=== PATIENT | male | born 1985 | race Caucasian/White ===

== ENCOUNTER 2024-05-04 12:54 | Emergency (ER) | payer MEDICAID, SELFPAY ==
[2024-05-04 13:47] VITALS: BP 136/96; PULSE 79; RESP 18; TEMP 36.6; O2SAT 95; BMI 46.5
--- NOTE | 2024-05-04 13:57 | XR_ITS ---
Examination: Lumbar spine 3 views Technique: AP lateral coned lateral lower lumbar spine 3 views Exam date and time: May 04, 2024 1427 hrs. Indications: Lower back pain beginning one week ago. Findings: Transitional L5 vertebral body Mild to moderate diffuse lumbar disc narrowing most prominent at T12-L1 No lumbar fracture Impression: Mild to moderate diffuse lumbar disc narrowing
[2024-05-04] MEDS: CYCLObenzaPRINE 5 MG TABLET 10 MG PO (14:42)
[2024-05-04] MEDS: predniSONE 20 MG TABLET 60 MG PO (14:43)
[2024-05-04] MEDS: HYDROcodone/APAP 5/325 TABLET 1 TAB PO (14:44)
[2024-05-04] MEDS: LIDOCAINE 5% 1 PATCH TOP (14:44)
--- NOTE | 2024-05-04 16:46 | PD.EDBACK ---
ED Back Injury Pain RME/HPI General Chief Complaint: Back Pain/Injury Stated Complaint: BACK PAIN X5 DAYS Time Seen by Provider: 05/04/24 13:35 Source: patient Arrival date/time: 05/04/24 12:54 This is a 39-year-old male who presents to the emergency department with complaints of lumbar lower back pain that radiates into his right side. Patient does have a history of degenerative disc disease. States that he has had pain exacerbation for the last 5 days no improvement with [id number] occasion. Patient denies bowel or bladder dysfunction. Denies fever. Mode of arrival: ambulatory Limitations: no limitations Related Data Previous Rx's ?Medication ?Instructions ?Recorded ibuprofen 800 mg tablet 800 mg PO Q8H PRN pain #20 tabs 09/19/19 cyclobenzaprine 10 mg tablet 10 mg PO Q8H #20 tabs 05/04/24 hydrocodone 5 mg-acetaminophen 325 1 tab PO Q8H PRN pain #7 tabs 05/04/24 mg tablet lidocaine 5 % topical patch 1 patch topical QDAY #15 ea 05/04/24 methocarbamol 750 mg tablet 750 mg PO BID #14 tabs 05/05/24 Allergies Allergy/AdvReac Type Severity Reaction Status Date / Time theophylline Allergy Unknown Verified 05/05/24 16:26 Review of Systems Review of Systems Systems Reviewed: All systems reviewed, normal except as documented Narrative Review of Systems: Gen: No fever, no chills, no weight loss EYES: No discharge, no visual changes, no pain HEENT: No ear pain, no congestion, no sore throat PULM: No shortness of breath, no cough, no congestion CV: No chest pain, no dyspnea on exertion, no palpitations GI: No nausea, no vomiting, no diarrhea, no pain, no constipation : No frequency, no urgency,? no dysuria Musc/skel: No joint pain, ++ back pain Skin: No rash? ED Exam General Limitations: Present no limitations General appearance: Present alert and in no apparent distress Head Head exam: Present atraumatic Eye Eye exam: Present normal appearance, PERRL and EOMI ENT ENT exam: Present normal exam, normal oropharynx and mucous membranes moist Neck Neck exam: Present normal inspection, full ROM and trachea midline Chest Chest inspection: Present normal inspection and symmetric chest wall rise Respiratory Respiratory exam: Present normal lung sounds bilaterally Cardiovascular Cardiovascular exam: Present regular rate, normal rhythm and normal heart sounds Abdominal Exam Abdominal exam: Present soft and normal bowel sounds; Absent distention, tenderness or guarding Extremities Exam Extremities exam: Present normal inspection and full ROM Back Exam Back exam: Present normal inspection, full ROM, paraspinal tenderness, sciatic notch tenderness (R) and straight leg raise (R); Absent tenderness Neurological Exam Neurological exam: Present alert, oriented X3 and CN II-XII intact Psychiatric Psychiatric exam: Present normal affect and normal mood Skin Skin exam: Present warm, dry, intact and normal color Course Quality Measures none Orders Category Date Time Status XR lumbar spine 2-3V Stat Exams 05/04/24 13:57 Completed CYCLObenzaPRINE [Flexeril] Med 05/04/24 13:57 Discontinued 10 mg PO X1 ONE HYDROcodone*/APAP 5/325 [[place] 5/325] Med 05/04/24 13:57 Discontinued 1 tab PO X1 ONE Lidocaine 5% Patch Med 05/04/24 13:57 Discontinued 1 patch TOP X1 ONE predniSONE Med 05/04/24 13:57 Discontinued 60 mg PO X1 ONE Vital Signs Vital signs: Vital Signs Temperature 97.8 F 05/04/24 13:47 Pulse Rate 79 05/04/24 13:47 Respiratory Rate 18 05/04/24 13:47 Blood Pressure 136/96 H 05/04/24 13:47 Pulse Oximetry (%) 95 05/04/24 13:47 Oxygen Delivery Method Room Air 05/04/24 13:47 Back Pain / Injury MDM Narrative MDM Narrative:: No fever, weakness, abdominal pain, saddle anesthesia, bowel/bladder incontinence noted. No hx of IVDA. Gait and sensation intact. No signs of emergent pathology at this time. Low suspicion for emergent etiology such as epidural abscess or spinal cord compression/cauda equina. Exam is consistent with musculoskeletal back pain. based on history, it's chronic pain. Gave meds while in ED. Pain went from 10 to 5 after meds. Vitals improved as well. Likely chronic back pain Patient data External records reviewed:: [facility] previous records Clinical information provided by:: patient Social determinants that could affect healthcare access:: none Patient has the following chronic illnesses:: no How is presenting disease/condition affected by chronic disease/condition?: no chronic disease Evaluation data The following diagnostics were reviewed and interpreted by me:: radiology exam(s) Lab and/or radiology exams considered but not ordered:: no Interpretation Summary: Examination: Lumbar spine 3 views Technique: AP lateral coned lateral lower lumbar spine 3 views Exam date and time: May 04, 2024 1427 hrs. Indications: Lower back pain beginning one week ago. Findings: Transitional L5 vertebral body Mild to moderate diffuse lumbar disc narrowing most prominent at T12-L1 No lumbar fracture Impression: Mild to moderate diffuse lumbar disc narrowing Medications / Prescriptions Medications or Prescriptions considered but not ordered:: no Medication administrations:: Medication Administration History Discontinued Medications Hydrocodone Bitart/Acetaminophen (Hydrocodone/Apap 5/325 Tablet) 1 tab PO X1 ONE Stop: 05/04/24 13:58 Last Admin: 05/04/24 14:44 Dose: 1 tab Documented By: Cyclobenzaprine HCl (Cyclobenzaprine 5 Mg Tablet) 10 mg PO X1 ONE Stop: 05/04/24 13:58 Last Admin: 05/04/24 14:42 Dose: 10 mg Documented By: Lidocaine (Lidocaine 5% 1 Patch) 1 patch TOP X1 ONE Stop: 05/04/24 13:58 Last Admin: 05/04/24 14:44 Dose: 1 patch Documented By: Prednisone (Prednisone 20 Mg Tablet) 60 mg PO X1 ONE Stop: 05/04/24 13:58 Last Admin: 05/04/24 14:43 Dose: 60 mg Documented By: All medications administered and effective Consultations Consultation(s) initiated? (list below): No Diagnosis Differential diagnosis back pain/injury: lumbar radiculopathy, sciatica, strain of lumbar region and other Most likely diagnosis given after review of the tests above:: lumbar radiculopathy Admission Indicated Admission indicated?: not indicated Admission Request Was there a request for admission?: No Disposition Plan Disposition Plan: Discharge Discharge Attestation Discharge Attestation: The patient and all family members were given an opportunity to ask questions and understood the discharge instructions. Discharge instructions specifically effects, indications for sooner follow up or return to the emergency department, and the expected course of current diagnosis. Patient condition: Stable Discharge Plan Plan Patient Disposition: HOME (Self Care) Patient condition on transfer: Stable Prescriptions/Referrals Prescriptions/Med Rec: New cyclobenzaprine 10 mg tablet 10 mg PO Q8H Qty: 20 0RF lidocaine 5 % adhesive patch,medicated 1 patch topical QDAY Qty: 15 1RF Rx Instructions: leave on most painful area for up to 12 hrs hydrocodone-acetaminophen 5-325 mg tablet 1 tab PO Q8H MDD 3 PRN (Reason: pain) Qty: 7 0RF No Action ibuprofen 800 mg tablet 800 mg PO Q8H PRN (Reason: pain) Qty: 20 0RF methocarbamol 750 mg tablet 750 mg PO BID Qty: 14 0RF Referrals: Edmund Winters MD [Primary Care Provider] - In 1 week Problem List Clinical Impression: Lumbar radiculopathy, Strain of lumbar region Patient/Caregiver Discharge Instructions Discharge Activity: activity as tolerated Education Materials: ED Back Sprain/Strain, ED Sciatica Additional Instructions: -You will need to rest and have activities modification avoid heavy lifting twisting motions or prolonged sitting or standing. -Will need to follow-up with your doctor in 2 to 3 days for follow-up care Might need physical therapy Might need referral for MRI outpatient, Diagnostic imaging (like MRI) might be used to assess the extent of the bulging disc, particularly if symptoms worsen or persist. -Medications sent please use as directed Can include ibuprofen, muscle relaxant, anti-inflammatory medication Lifestyle modifications weight reduction Return to the emergency department this any worsening symptoms change in condition. Print Language: Bahamian Stand Alone Forms: Suly Award Info., Patient Portal Info Letter JOAQUIN/LYNSEY Supervising Physician JOAQUIN/LYNSEY Supervising Physician: Dr Jay
== END 2024-05-04 17:37 | disposition home or self-care (01) ==
PROVIDERS: Emergency Provider Emergency Medicine; PCP Family Medicine
DX: M54.16 Radiculopathy, lumbar region (principal); M48.061 Spinal stenosis, lumbar region without neurogenic claudication; S39.012A Strain of muscle, fascia and tendon of lower back, initial encounter; X58.XXXA Exposure to other specified factors, initial encounter
CPT/HCPCS: 72100; 99283; J7512; Z7610; A9270

== ENCOUNTER 2024-05-05 15:09 | Emergency (ER) | payer MEDICAID, SELFPAY ==
[2024-05-05 15:11] VITALS: BP 153/91; PULSE 67; RESP 20; TEMP 36.5; O2SAT 96
[2024-05-05 15:55] VITALS: BMI 46.5
[2024-05-05 16:28] VITALS: BP 151/98; PULSE 71; RESP 20; TEMP 36.4; O2SAT 95
--- NOTE | 2024-05-05 17:10 | XR_ITS ---
Examination: CT lumbar spine, without contrast. 2-D sagittal reconstructions. 2-D coronal reconstructions. 3-D reconstructions. Date and time of exam:May 05, 2024 1731 hrs. Indications: Low back pain beginning 6 days ago CTDI: vol (mGy):46.3 DLP: (mGycm):1425 Technique: Multiple 1.25 mm axial sections of the lumbar spine without intravenous contrast have been obtained. 2-D sagittal and coronal reconstructions have been obtained. 3-D reconstructions have been obtained. Low dose protocols were performed. One or more of the following dose reduction techniques were used; automated exposure control, adjustment of the mA and/or KV according to patient size, use of iterative reconstruction technique. Findings: Body, lateral view No lumbar vertebral body compression fracture Lumbar pedicles laminated transverse and posterior spinous processes are intact Transitional S1 vertebral body L5-S1 no disc protrusion L4-L5 no disc protrusion L3-L4 no disc protrusion L2-3 no disc protrusion L1-L2 no disc protrusion Impression: No lumbar fracture or significant lumbar disc narrowing No focal lumbar disc protrusion If symptoms persist, consider elective MRI lumbar spine without contrast follow-up
--- NOTE | 2024-05-05 17:13 | EDNOTE_ITS ---
<Statement entered by Yanira Merlos MD - 05/07/24 01:46> As co-signing physician, I was present and available for consult prn. I concur with the plan and care as documented by the midlevel provider. ED General RME/HPI General Chief complaint: Back Pain/Injury Stated complaint: BACK PAIN Time Seen by Provider: 05/05/24 17:04 Arrival date/time: 05/05/24 15:09 CC: Right lower back pain HPI ongoing for the past 6 days. Patient has waxing waning with progressive increase in severity over the past 6 days ,no relief with OTC medications.. Seen by this emergency room yesterday put on cyclobenzaprine prednisone and hydrocodone without relief. Patient denies bowel or bladder symptoms saddle anesthesia, numbness tingling or weakness in the lower extremities. Patient states no relief with the medications called 911 today after the pain became severe. Patient denies weakness in the lower extremities. No prior history of back injuries. Patient takes no medications has no allergies and has no regular outpatient follow-up primary care doctor. Note: patient is morbidly obese Related Data Previous Rx's ?Medication ?Instructions ?Recorded ibuprofen 800 mg tablet 800 mg PO Q8H PRN pain #20 t abs 09/19/19 cyclobenzaprine 10 mg tablet 10 mg PO Q8H #20 tabs hydrocodone 5 mg-acetaminophen 325 1 tab PO Q8H PRN pa in #7 tabs 05/04/24 mg tablet lidocaine 5 % topical patch 1 patch topical QDAY #15 e a 05/04/24 prednisone 50 mg tablet 50 mg PO QDAY 5 days #5 tabs 05/04/24 methocarbamol 750 mg tablet 750 mg PO BID #14 tabs Allergies Allergy/AdvReac Type Severity Reaction Status Date / Time theophylline Allergy Unknown Verified 05/05/24 16:26 Review of Systems Review of Systems Narrative Review of Systems: GEN: No fever, no chills, no weight loss EYES: No discharge, no visual changes, no pain HEENT: No ear pain, no congestion, no sore throat PULM: No shortness of breath, no cough, no congestion CV: No chest pain, no dyspnea on exertion, no palpitations GI: No nausea, no vomiting, no diarrhea, no pain, no constipation : No frequency, no urgency, no dysuria MUSC/SKEL: No joint pain, + back pain SKIN: No rash PSYCH: No hallucinations, no depression HEME/LYMPH: No easy bleeding or bruising tendencies NEURO: No weakness, no headache Past Medical History Past Medical History NEUROLOGIC: Positive Neurological Disorders and Seizures CARDIAC: Negative Congestive Heart Failure RESPIRATORY: Positive Asthma; Negative Chronic Obstructive Pulmonary Disease (COPD) GENITOURINARY: Negative Renal Disease ENDOCRINE: Negative Diabetes Mellitus Type 1 or Diabetes Mellitus Type 2 Social History SMOKING STATUS: Current every day smoker ED Exam Narrative Physical exam: [General: Morbidly obese not in moderate discomfort not in any acute distress Head normocephalic HEENT: Eyes pupils are PERRLA EOMs are intact within acceptable limits Neck is supple nontender Chest equal chest rise nontender to palpation Respiratory: Clear to auscultation no wheezes crackles or rubs CV: Rate rhythm is regular no murmurs rubs or clicks Abdomen is grossly distended secondary to body habitus soft nontender no masses positive bowel sounds all 4 quadrants Back: Right lumbar 1 through 5 paraspinal tenderness with palpation, pain relief with massage. No spinous process tenderness no left paraspinal tenderness with palpation. Skin: Intact no petechiae rash induration ulceration or crepitus Extremities: Moving all extremity against resistance cap refill less than 2 seconds neurosensory intact Neuro: Awake alert oriented x3 Glascow coma 15 no focal deficits] Course Course Course Narrative: Upon reassessment of the patient at 1842, the patient states that when he went to urinate he had groin pain. Quality Measures none Orders Category Date Time Status Glucose [Bedside Blood Glucose] NOW Care 05/05/24 20:24 Active Saline [Insert IV] NOW Care 05/05/24 17:[address] abdomen pelvis wo con Stat Exams 05/05/24 18:[address] lumbar spine wo con Stat Exams 05/05/24 17:10 Completed Urinalysis Stat Lab 05/05/24 19:05 Completed Ketorolac Inj [Toradol Inj] Med 05/05/24 17:10 Discontinued 30 mg IVP X1 ONE fentaNYL INJ [Sublimaze Inj] Med 05/05/24 17:13 Discontinued 50 mcg IVP X1 ONE Vital Signs Vital signs: Vital Signs Temperature 97.7 F 05/05/24 15:11 Pulse Rate 67 05/05/24 15:11 Respiratory Rate 20 05/05/24 15:11 Blood Pressure 153/91 H 05/05/24 15:11 Pulse Oximetry (%) 96 05/05/24 15:11 Oxygen Delivery Method Room Air 05/05/24 15:11 [facility] Patient data External records reviewed:: [facility] previous records and EMS form Clinical information provided by:: patient and EMS Social determinants that could affect healthcare access:: none Patient has the following chronic illnesses:: Morbid obesity How is presenting disease/condition affected by chronic disease/condition?: exacerbated by Evaluation data The following diagnostics were reviewed and interpreted by me:: lab results and radiology exam(s) Lab and/or radiology exams considered but not ordered:: CT of the lumbar spine is negative CT of the abdomen shows mild colitis pattern no renal calculus hydronephrosis Interpretation Summary: I suspect the back pain is more muscular related as the pain was site-specific to the right sided lumbar paraspinal region. Will discharge the patient home Medications Medications considered but not ordered:: None Medication administrations:: Medication Administration History Discontinued Medications Fentanyl Citrate (Fentanyl Cit Inj 50 Mcg/Ml Amp 2ml) 50 mcg IVP X1 ONE Stop: 05/05/24 17:14 Last Admin: 05/05/24 18:12 Dose: 50 mcg Documented By: Ketorolac Tromethamine (Ketorolac Inj 30 Mg/Ml Vial) 30 mg IVP X1 ONE Stop: 05/05/24 17:11 Last Admin: 05/05/24 18:12 Dose: 30 mg Documented By: GM None Consultations Consultation(s) initiated? (list below): No Diagnosis Differential Diagnosis ED Complaint MDM: Urolithiasis hydroureter lumbar fracture low back strain Most likely diagnosis given after review of the tests above:: Low back strain Admission Indicated Admission indicated?: not indicated Explain why admission is indicated or not indicated:: Stable for discharge Admission Request Was there a request for admission?: No Disposition Plan Disposition Plan: Discharge Discharge Attestation Discharge Attestation: The patient and all family members were given an opportunity to ask questions and understood the discharge instructions. Discharge instructions specifically effects, indications for sooner follow up or return to the emergency department, and the expected course of current diagnosis. Patient condition: Stable Medical Decision Making Differential Diagnosis Differential Diagnosis: Urolithiasis hydroureter lumbar fracture low back strain Lab Data Labs: Lab Results 02/23/25 Range/Units 19:05 Ur Collection Type Clean Catch Urine Color Lt-Yellow (Lt Yel-Yel) Urine Clarity Hazy (Clear/Hazy) Urine pH 7.0 (5.0-7.0) Ur Specific [place] 1.016 (1.001-1.035) Urine Protein Trace (Neg - Trace) Urine Glucose (UA) Negative (Negative) Urine Ketones Negative (Negative) Urine Blood Negative (Negative) Urine Nitrite Negative (Negative) Urine Bilirubin Negative (Negative) Urine Urobilinogen (Auto) Negative (0.0-1.0) mg/dL Ur Leukocyte Esterase Negative (Negative) Urine RBC 1 (0-3) /hpf Urine WBC 1 (0-5) /hpf Ur Squamous Epith Cells < 1 (0-5) /hpf Urine Bacteria None (None) Discharge Plan Plan Patient Disposition: HOME (Self Care) Patient condition on transfer: Stable Prescriptions/Referrals Prescriptions/Med Rec: New methocarbamol 750 mg tablet 750 mg PO BID Qty: 14 0RF No Action ibuprofen 800 mg tablet 800 mg PO Q8H PRN (Reason: pain) Qty: 20 0RF cyclobenzaprine 10 mg tablet 10 mg PO Q8H Qty: 20 0RF prednisone 50 mg tablet 50 mg PO QDAY 5 Days Qty: 5 0RF lidocaine 5 % adhesive patch,medicated 1 patch topical QDAY Qty: 15 1RF Rx Instructions: leave on most painful area for up to 12 hrs hydrocodone-acetaminophen 5-325 mg tablet 1 tab PO Q8H MDD 3 PRN (Reason: pain) Qty: 7 0RF Referrals: No Primary/Family,Physician [Primary Care Provider] - In 1 week Edmund Winters MD [Physician] - In 1 week Problem List Clinical Impression: Low back strain Patient/Caregiver Discharge Instructions Education Materials: ED Back Sprain/Strain Additional Instructions: Take the medications as needed for temporary pain relief rest drink plenty of fluids avoid any heavy lifting or bending. Print Language: Korean Stand Alone Forms: Suly Award Info., Patient Portal Info Letter PA/HOSPITAL HOUSEKEEPER Supervising Physician PA/HOSPITAL HOUSEKEEPER Supervising Physician: Vasyl Lopez ENP
[2024-05-05] MEDS: KETOROLAC INJ 30 MG/ML VIAL IVP (18:12)
[2024-05-05] MEDS: fentaNYL CIT INJ 50 mCg/ML AMP 2ML IVP (18:12)
[2024-05-05 18:16] VITALS: BP 148/102; PULSE 60; RESP 15; TEMP 36.7; O2SAT 97
--- NOTE | 2024-05-05 18:43 | XR_ITS ---
Examination: CT abdomen and pelvis without contrast. Coronal 3-D reconstructions. Sagittal 2-D reconstructions. Date and time of exam:May 05, 2024 1901 hrs. Indications: Generalized abdominal pain right flank pain today CTDI: vol (mGy): 15.1 DLP: (mGycm): 981 Technique: Axial images of the abdomen have been obtained, 3 mm slice thickness Intravenous contrast material has not been administered. Low dose protocols were performed. One or more of the following dose reduction techniques were used; automated exposure control, adjustment of the mA and/or KV according to patient size, use of iterative reconstruction technique. Findings: Liver mildly irregular in contour with fatty infiltration No gallstones Spleen not enlarged No pancreatic or adrenal mass No renal or ureteral calculi Aorta normal size Mild hyperemia involving the wall the colon diffusely Normal appendix No bowel obstruction Contracted urinary bladder No prostatomegaly Impression: Mild diffuse nonspecific colitis pattern Suspect primary hepatocellular disease
[2024-05-05 19:30] LABS: Collection Type, Urine Clean Catch
[2024-05-05 20:05] LABS: Bilirubin,Urine Negative (Negative); Blood,Urine Negative (Negative); Color,Urine Lt-Yellow (Lt Yel-Yel); Glucose, Urine Negative (Negative); Ketones,Urine Negative (Negative); Leukocyte Esterase,Urine Negative (Negative); Nitrite,Urine Negative (Negative); Protein,Urine Trace (Neg - Trace); RBC,Urine 1 /hpf (0-3); Specific Gravity,Urine 1.016 (1.001-1.035); Squamous Epithelial Cell,Urine < 1 /hpf (0-5); Urobilinogen,Urine Negative mg/dL (0.0-1.0); WBC,Urine 1 /hpf (0-5)
[2024-05-05 20:09] LABS: Clarity,Urine Hazy (Clear/Hazy)
[2024-05-05 20:58] VITALS: BP 148/67; PULSE 87; RESP 18; TEMP 36.2; O2SAT 99
== END 2024-05-05 20:59 | disposition home or self-care (01) ==
PROVIDERS: Registered Nurse General Practice; Emergency Provider Emergency Medicine
DX: S39.012A Strain of muscle, fascia and tendon of lower back, initial encounter (principal); R10.84 Generalized abdominal pain; X58.XXXA Exposure to other specified factors, initial encounter
CPT/HCPCS: 72131; 74176; 81001; 96374; 96375; 99284; J1885; J3010